=== PATIENT | male | born 1955 | race Caucasian/White ===

== ENCOUNTER 2021-01-04 06:27 | Day surgery (SDC) | payer BC ==
[~2021-01-04 06:27] MED LIST: BUPIVACAINE 0.5% VIAL IJ ONE; XYLOCAINE 1% HCL 20 ML MDV ONE
[2021-01-04] MEDS ORDERED: CEFAZOLIN 2 GM-D5W BAG** 2 GM/50 ML ML IV SCH (06:30)
[2021-01-04] MEDS ORDERED: Lactated Ringers 1,000 ML IV SCH (06:30)
[2021-01-04] MEDS ORDERED: CEFAZOLIN 2 GM-D5W BAG** 2 GM/50 ML ML IV ONE (07:04)
[2021-01-04] MEDS ORDERED: Lactated Ringers 1,000 ML IV ONE (07:04)
[2021-01-04] MEDS ORDERED: BUPIVACAINE 0.5% VIAL IJ ONE (07:32)
[2021-01-04] MEDS ORDERED: XYLOCAINE 1% HCL 20 ML MDV ONE (07:32)
[2021-01-04 09:02] VITALS: O2SAT 100
[2021-01-04 09:18] VITALS: BP 130/88; PULSE 62
--- NOTE | 2021-01-04 10:53 | OP ---
SURGERY DATE/TIME: 01/04/2021 0806 PREOPERATIVE DIAGNOSIS: Deep peroneal nerve entrapment and mononeuropathy. POSTOPERATIVE DIAGNOSIS: Deep peroneal nerve entrapment and mononeuropathy. PROCEDURE: Neurolysis of deep peroneal nerve left foot. SURGEON: Rigoberto Gonzalez DPM. HAND FILER BALANCE WHEEL: None. ANESTHESIA: Local consisting of 30 cc with 1:1 mixture of 1% lidocaine plain and 0.5% Marcaine plain injected in ankle block-type fashion. HEMOSTASIS: Ankle tourniquet set to 250 mm of Mercury for 20 minutes. ESTIMATED BLOOD LOSS: Less than 5 cc. MATERIALS: 4-0 Monocryl, 3-0 Nylon. INJECTABLES: 30 cc of 1:1 mixture of 1% lidocaine plain and 0.5% bupivacaine plain injected in ankle block-type fashion. INDICATION FOR SURGERY: Alexander Jean is a very pleasant 65 year-old male very well known to my service for idiopathic peripheral neuropathy both legs and bilateral Charcot deformity. Luckily in his case the forefoot Lisfranc Charcot is stable and does not require any surgical intervention. However, he has symptomatology consistent with deep peroneal nerve entrapment at the level of the mid-foot and the first web space. At this time the patient indicates that this pain is significant in comparison to any of the other pain that he has encountered in his life and he wishes to proceed with surgical intervention. The patient was notified of all risks, benefits and complications of surgical intervention and wished to proceed with surgical intervention consisting of a deep peroneal neurolysis. DESCRIPTION OF PROCEDURE AND FINDINGS: Following adequate assessment by the preoperative team, the patient was brought into the operating room and placed supine on the operating room table. At this time an ankle block was performed under aseptic technique utilizing 30 cc of 1:1 mixture of 1% lidocaine plain and 0.5% bupivacaine plain. The patient handled this without complication and the left foot was prepped and draped in the typical sterile fashion. At this time attention was directed to the first web space of the left foot where due to his Charcot deformity there is a significant amount of hallux abductovalgus. A skin marker was utilized to identify the appropriate incision site where the deep peroneal nerve perforates into the first web space. At this time a 15 blade was utilized to carry incision down to the subcutaneous layer. From this point on a combination of blunt and sharp dissection was utilized to carry the dissection through the web space. On encounter of the medial dorsal digital branch identification this was traced back to the bifurcation where the peroneal nerve separates between the web space. The medial branch of this was isolated and neurolysis was performed. Two hemostats were applied to the nerve and the nerve was resected. Bovie was set to 40 and was utilized to double crush the nerve which was then buried into the adductor hallucis muscle belly. At this time dissection was carried down to the plantar digital nerve and the same procedure was performed at this level. The patient was awake for the procedure. Identification of the nerves were made utilizing the Bovie and the patient's mobilization of a positive Tinel's when activated. At this time the incision site was burying of the nerve into the adductor hallucis muscle belly was performed utilizing 4-0 Monocryl. At this time the incision site was then washed with copious amounts of sterile saline. A single interrupted stitch was utilized to coapt the subcutaneous tissue and then a combination of simple interrupted and horizontal mattress-type sutures were utilized to coapt the skin edges. At this time a dressing consisting of Betadine, Adaptic, 4x4, Martha and Coban was applied to the left foot and a postoperative surgical shoe was applied to the left foot. The patient handled the procedure without complication. Tourniquet was let down at a total of 20 minutes. The patient was returned to the postoperative anesthesia care unit with vital signs stable and vascular status intact. Postoperative orders as indicated in the patient's chart.
== END 2021-01-04 09:20 | disposition home or self-care (01) ==
LOC: SDC 06:27
PROVIDERS: ATTEND Podiatrist Foot & Ankle Surgery
DX: G57.32 Lesion of lateral popliteal nerve, left lower limb (principal); G57.82 Other specified mononeuropathies of left lower limb; M79.672 Pain in left foot
CPT/HCPCS: 64708; J0690

== ENCOUNTER 2022-12-19 06:03 | Day surgery (SDC) | payer MEDICARE, BC ==
[2022-12-19] MEDS ORDERED: Marcaine Mpf 0.5% Vial 30 Ml ONE (06:17)
[2022-12-19] MEDS ORDERED: Xylocaine 1% Vial 30 ML PF IJ ONE (06:18)
[2022-12-19] MEDS ORDERED: Lactated Ringers 1,000 ML IV SCH (06:30)
[2022-12-19] MEDS ORDERED: CEFAZOLIN 2 GM-D5W BAG** 2 GM/50 ML ML IV SCH (06:30)
[2022-12-19 06:46] VITALS: O2SAT 98
[2022-12-19 06:58] LABS: BASOPHIL % 0.5 % (0.0-0.4); Basophil (Absolute #) 0.05 x10^3/uL (0-0.4); Eosinophil % 1.8 % (0.00-5.0); Eosinophil (Absolute #) 0.17 x10^3/uL (0-0.5); Hematocrit 50.9 % (42-50); IMMATURE GRAN # 0.02 x10^3u/L (0.00-0.03); IMMATURE GRAN % 0.2 % (0.00-0.4); Lymphocyte (Absolute #) 2.48 x10^3/uL (1.0-4.6); Lymphocytes % 26.6 % (24.0-44.0); Mean Cell Volume 84.1 fL (78-100); Mean Corpuscular Hemoglobin 28.1 pg (26-32); Mean Corpuscular Hgb Concent. 33.4 g/dL (32-36); Mean Platelet Volume 9.6 fL (7.5-11.0); Monocytes % 8.6 % (0.0-12.0); Neutrophil % 62.3 % (36.0-66.0); Platelet Count 239 x10^3/uL (150-450); Red Blood Count 6.05 x10^6/uL (4.1-5.6); Red Cell Distribution Width 12.5 % (11.5-14.0); White Blood Count 9.3 x10^3/uL (4.0-10.5)
[2022-12-19 08:19] VITALS: BP 113/89; PULSE 54
[2022-12-19 08:41] LABS: ALBUMIN 4.8 g/dL (3.5-5.0); ALKALINE PHOSPHATASE 93 U/L (38-126); ANION GAP 17.7 MEQ/L (5-15); BLOOD UREA NITROGEN 19 mg/dL (9-20); CHLORIDE 103 mmol/L (98-107); Calcium 9.3 mg/dL (8.4-10.2); Carbon Dioxide 23 mmol/L (22-30); Creatinine 1 0.95 mg/dL (0.66-1.25); EST GLOMERULAR FILTRATION RATE > 60.0 ML/MIN; Glucose 110 mg/dL (74-106); Potassium 4.6 mmol/L (3.5-5.1); SGOT/AST 32 U/L (17-59); SGPT/ALT 30 U/L (0-50); SODIUM 139 mmol/L (137-145); Total Protein 8.4 g/dL (6.3-8.2)
--- NOTE | 2022-12-19 08:47 | XRAY ---
Indication: Right 3rd metatarsal floating osteotomy. Intraoperative fluoroscopy provided for 48 seconds. 3 digital spot images submitted for interpretation demonstrates distal 3rd metatarsal shaft osteotomy. Correlate with intraoperative findings/report.
--- NOTE | 2022-12-22 11:13 | OP ---
SURGERY DATE/TIME: 12/19/2022 0712 PREOPERATIVE DIAGNOSES: 1) Idiopathic peripheral neuropathy right foot. 2) Charcot osteoarthropathy. 3) Pressure ulcer chronic right foot. POSTOPERATIVE DIAGNOSES: 1) Idiopathic peripheral neuropathy right foot. 2) Charcot osteoarthropathy. 3) Pressure ulcer chronic right foot. PROCEDURES: Floating metatarsal head osteotomy right foot. SURGEON: Rigoberto Gonzalez DPM. KENNEL STAFF MEMBER: None. ANESTHESIA: Local. ESTIMATED BLOOD LOSS: Less than 2 cc. MATERIALS: 3-0 Nylon. INJECTABLES: 20 cc of 1:1 mixture of 1% lidocaine plain and 0.5% bupivacaine plain injected in a metatarsal block-type fashion. HEMOSTASIS: Pressure dressing. INDICATION FOR SURGERY: Alexander is a very pleasant long-time patient of [facility] who is very well known to our service for having a very unique case of bilateral Charcot osteoarthropathy to his feet at the mid-foot however with no presence of diabetes mellitus. He does have some severe idiopathic peripheral neuropathy and developed Charcot over the years however has remained stable. In the last six weeks, the patient has developed an ulceration underneath the third metatarsal head of the right foot at this time this is secondary to plantar fat pad atrophy, biomechanics and metatarsal head overload secondary to Charcot deformity. Given the patient's stability, no recommendations were made for reconstruction. However, the recommendation was made for a floating metatarsal head osteotomy for several reasons. The patient has had multiple negative wound cultures at this time. The patient's metatarsal head was not exposed plantarly to the pressure ulceration and the patient does have Charcot osteoarthropathy with idiopathic peripheral neuropathy to make him an excellent candidate for his procedure in order to heal the wound at the plantar aspect of the right foot. The patient had failed conservative management of the wound care with some significant improvement however there is significant callousing and high probability of recurrence. All risks, complications and benefits of surgical intervention including but not limited to infection, hematoma, seroma, possibility of delayed wound healing, bone healing, possibility of nonhealing fracture, possibility of pain and possibility of bone infection were all discussed with the patient. He understands all of these risks and wishes to proceed with surgical intervention at this time. No guarantees were provided as to the outcome. Plenty of time was allowed for him and his to ask questions which were answered to their apparent satisfaction. It is with that we decided to proceed. DESCRIPTION OF PROCEDURE AND FINDINGS: Alexander is brought into the OR and placed on the OR table in the supine position. At this time aseptic block was performed blocking the metatarsal #3 to the right foot. Following this, the right foot was prepped and draped in the typical sterile fashion and lowered onto the surgical field. At this time attentions was directed under fluoroscopic guidance to the wound plantarly. A [place] was utilized to confirm that the metatarsal head #3 was pressure source. A stab incision was made dorsal medial to the third metatarsal head this was resected utilizing an 18 mm sagittal saw. Once free under fluoroscopic guidance, the metatarsal head was freely movable and this off-loaded the pressure. Following this, simple 3-0 Nylon in a horizontal mattress-type fashion was utilized to coapt the skin. The wound at the plantar aspect of the right foot was debrided utilizing a curette. Following this a dressing consisting of Betadine, Adaptic, 4x4, Kerlix and Coban was utilized to secure the foot. The patient was then returned to the preoperative with vital signs stable and vascular status intact. The patient handled the anesthesia as well as the procedure without significant complication. Postoperative orders as indicated in the patient's discharge chart.
== END 2022-12-19 08:25 | disposition home or self-care (01) ==
LOC: SDC 06:03
PROVIDERS: ATTEND Podiatrist Foot & Ankle Surgery
DX: G60.9 Hereditary and idiopathic neuropathy, unspecified (principal); M14.671 Charcot's joint, right ankle and foot; L89.610 Pressure ulcer of right heel, unstageable
CPT/HCPCS: 11042; 28308; 36415; 73630; 76000; 80053; 85025; J0690; J2001

== ENCOUNTER 2023-09-08 08:27 | Day surgery (SDC) | payer BC, MEDICARE ==
[2023-09-08] MEDS ORDERED: CEFAZOLIN 2 GM-D5W BAG** 2 GM/50 ML ML IV ONE (08:38)
[2023-09-08] MEDS ORDERED: Lactated Ringers 1,000 ML IV ONE (08:39)
[2023-09-08] MEDS: CEFAZOLIN 2 GM-D5W BAG** 2 GM/50 ML ML IV SCH (08:42)
[2023-09-08] MEDS: Lactated Ringers 1,000 ML IV SCH (08:42)
[2023-09-08 08:59] VITALS: RESP 18; O2SAT 98
[2023-09-08 09:07] LABS: Hematocrit 49.1 % (42-50); Hemoglobin 16.2 g/dL (12.5-18.0); Mean Corpuscular Hemoglobin 28.4 pg (26-32); Mean Platelet Volume 10.1 fL (7.5-11.0); Platelet Count 200 x10^3/uL (150-450); Red Blood Count 5.71 x10^6/uL (4.1-5.6); Red Cell Distribution Width 12.5 % (11.5-14.0); White Blood Count 5.9 x10^3/uL (4.0-10.5)
[2023-09-08 09:22] LABS: ALBUMIN 4.5 g/dL (3.5-5.0); ANION GAP 12.1 MEQ/L (5-15); BILIRUBIN,TOTAL 0.7 mg/dL (0.2-1.3); Calcium 9.3 mg/dL (8.4-10.2); Creatinine 1 0.98 mg/dL (0.66-1.25); EST GLOMERULAR FILTRATION RATE 85.6 ML/MIN; Potassium 4.3 mmol/L (3.5-5.1); Total Protein 7.2 g/dL (6.3-8.2)
[2023-09-08] MEDS ORDERED: Marcaine Mpf 0.5% Vial 30 Ml ONE (10:29)
[2023-09-08] MEDS ORDERED: XYLOCAINE 1% HCL 20 ML MDV ONE (10:29)
[2023-09-08] MEDS ORDERED: VANCOCIN INJECTION IV ONE (11:48)
--- NOTE | 2023-09-08 12:06 | XRAY ---
Indication: Right 1st metatarsal bone debridement. Intraoperative fluoroscopy provided to 34 seconds. 4 digital spot images submitted for interpretation demonstrates metallic localizer tip projecting over 1st metatarsal head. Correlate with intraoperative findings/report.
[2023-09-08 12:22] VITALS: BP 135/76; PULSE 51; TEMP 97.3
--- NOTE | 2023-09-08 15:21 | XRAY ---
34 seconds of fluoroscopy was used in surgery for a right 1st metatarsal bone debridement.
--- NOTE | 2023-09-09 11:46 | OP ---
SURGERY DATE/TIME: 09/08/2023 1101 PREOPERATIVE DIAGNOSES: 1) Peroneal overdrive right foot. 2) Osteomyelitis tibial sesamoid right foot. 3) Pressure ulcer right foot. 4) Idiopathic peripheral neuropathy. 5) Charcot osteoarthropathy right foot. POSTOPERATIVE DIAGNOSES: 1) Peroneal overdrive right foot. 2) Osteomyelitis tibial sesamoid right foot. 3) Pressure ulcer right foot. 4) Idiopathic peripheral neuropathy. 5) Charcot osteoarthropathy right foot. PROCEDURES: 1) Resection of peroneus longus tendon. 2) Resection of tibial sesamoid. 3) Wound debridement right foot. SURGEON: Rigoberto Gonzalez DPM. CIVIL ENGINEERING DESIGNER: None. ANESTHESIA: Local consisting of 30 cc of 1:1 mixture of 1% lidocaine plain and 0.5% bupivacaine plain injected in ankle block laterally to the right lower extremity. HEMOSTASIS: Pressure dressing. ESTIMATED BLOOD LOSS: Approximately 10 cc. MATERIALS: 4-0 Monocryl, 3-0 Nylon. INDICATION FOR SURGERY: Alexander is a very pleasant 67-year-old male very well known to my service for idiopathic peripheral neuropathy. However, uncharacteristically he has Charcot osteoarthropathy to the bilateral lower extremities with almost complete fragmentation and coalescence of his bilateral feet at the level of the metatarsal joint this has resulted in significantly deformed feet and this has resulted in significant pressure in conjunction with his peripheral neuropathy this has resulted in multiple pressure wounds in the past. Today, we are dealing with a newer wound underneath the right first metatarsophalangeal joint. He has had this wound for approximately three weeks per patient's recollection. The wound was debrided in clinic effectively and the infection seemingly gone clinically. However, MRI was obtained on of last week demonstrating some early indications of osteomyelitis on the tibial sesamoid of the right foot. As a result the decision was made to proceed with offloading procedures to the first metaphalangeal joint with accessing the sesamoid and removing that from the equation. Debridement of the wound as well as resection of the peroneus longus which is causing peroneal overdrive as a result of significant deformity to the foot and significant muscle contracture. From that standpoint, the patient is significantly neuropathic and wishes to stay awake for the procedure. He understands all risks, complications and benefits of surgical intervention at this time including but not limited to infection, hematoma, seroma, possibility of delayed wound healing, nonwound healing, possible failure of surgical intervention and possible need for further surgical intervention at a later date. No guarantees were provided as to the outcome of surgical intervention. At this time, we decided to proceed. DESCRIPTION OF PROCEDURE AND FINDINGS: The patient is brought into the OR and placed on the OR table in the supine position. At this time the right lower extremity was prepped and draped in the typical sterile fashion. Ankle block was performed utilizing 30 cc of a 1:1 mixture of 1% lidocaine plain and 0.5% bupivacaine plain for the peroneus longus tendon resection. At this time, attention was directed to the right ankle where the fibula was identified just posterior to the posterior border of the fibula. A linear incision was made approximately 3 cm in length this was carried down into the peroneus longus and peroneus brevis tendon were identified retracting these tendons and utilizing a [place] to identify which tendon was which. Once the peroneus longus was identified it was resected and a 1 cm wedge was taken out of it to prevent it from scarring back down. From that standpoint, attention was then directed to the medial aspect of the first metaphalangeal joint where at the moccasin line of the first metatarsophalangeal joint linear incision was made and carried down to the level of the plantar aspect of the first metaphalangeal joint. The tibial sesamoid was identified. The flexor hallucis brevis was resected from distal and proximal and with a rongeur this was removed from the surgical site this was handed off the field for pathologic assessment. At this time copious amounts of Bactisure 1 liter was utilized to flush the surgical site and 3 liters of sterile saline were then utilized to flush the surgical site. The medial foot wound and lateral ankle wound were then coapted utilizing 4-0 Monocryl, 3-0 Nylon in a simple interrupted buried-type fashion to the subcu and a horizontal mattress-type fashion to the skin. The wound was then debrided with a postoperative debridement. Size of the wound being 1.7 x 2.9. The patient then had a dressing consisting of Betadine, Adaptic, 4x4, Kerlix and MIKHAIL applied to the patient's right foot. The patient was then returned to the postoperative anesthesia care unit with vital signs stable and vascular status intact. The patient handled the anesthesia as well as the procedure without significant complication. Postoperative orders as indicated in the patient's discharge chart.
== END 2023-09-08 12:40 | disposition home or self-care (01) ==
LOC: SDC 08:27
PROVIDERS: ATTEND Podiatrist Foot & Ankle Surgery
DX: M86.9 Osteomyelitis, unspecified (principal); M67.873 Other specified disorders of tendon, right ankle and foot; L89.619 Pressure ulcer of right heel, unspecified stage; G60.9 Hereditary and idiopathic neuropathy, unspecified; M14.671 Charcot's joint, right ankle and foot
CPT/HCPCS: 11042; 28200; 28315; 36415; 73630; 76000; 80053; 85027; J0690; J3370

== ENCOUNTER 2023-11-19 12:03 | Day surgery (SDC) | payer BC, MEDICARE ==
[2023-11-19] MEDS ORDERED: CEFAZOLIN 2 GM-D5W BAG** 2 GM/50 ML ML IV ONE (12:21)
[2023-11-19] MEDS ORDERED: Lactated Ringers 1,000 ML IV ONE ×2 (12:21→12:26)
[2023-11-19] MEDS: Lactated Ringers 1,000 ML IV SCH (12:29)
[2023-11-19] MEDS: CEFAZOLIN 2 GM-D5W BAG** 2 GM/50 ML ML IV SCH (12:29)
[2023-11-19 12:52] LABS: Hematocrit 47.8 % (42-50); Hemoglobin 16.1 g/dL (12.5-18.0); Mean Cell Volume 83.3 fL (78-100); Mean Corpuscular Hgb Concent. 33.7 g/dL (32-36); Mean Platelet Volume 9.8 fL (7.5-11.0); Platelet Count 212 x10^3/uL (150-450); Red Blood Count 5.74 x10^6/uL (4.1-5.6); Red Cell Distribution Width 12.7 % (11.5-14.0); White Blood Count 6.6 x10^3/uL (4.0-10.5)
[2023-11-19 13:06] LABS: ALBUMIN 4.4 g/dL (3.5-5.0); ANION GAP 14.6 MEQ/L (5-15); BILIRUBIN,TOTAL 0.9 mg/dL (0.2-1.3); Calcium 9.4 mg/dL (8.4-10.2); Creatinine 1 0.94 mg/dL (0.66-1.25); EST GLOMERULAR FILTRATION RATE 89.4 ML/MIN; Total Protein 7.5 g/dL (6.3-8.2)
[2023-11-19] MEDS ORDERED: Xylocaine 1% Vial 30 ML PF IJ ONE (13:44)
[2023-11-19] MEDS ORDERED: Marcaine Mpf 0.5% Vial 30 Ml ONE (13:44)
--- NOTE | 2023-11-19 15:23 | XRAY ---
Indication: Right 1st MTP arthrodesis. Intraoperative fluoroscopy provided for 46 seconds. 17 digital spot images submitted for interpretation demonstrates instrumentation 1st MTP joint. Correlate with intraoperative findings/report.
[2023-11-19 15:29] VITALS: O2SAT 99
[2023-11-19 15:52] VITALS: BP 132/78; PULSE 58; RESP 18; TEMP 97.8
--- NOTE | 2023-11-19 16:49 | XRAY ---
46 seconds of fluoroscopy was used in surgery for a right 1st MTP arthrodesis.
--- NOTE | 2023-11-20 12:14 | OP ---
SURGERY DATE/TIME: 11/19/2023 7314 PREOPERATIVE DIAGNOSES: 1) Medial collateral ligament tear. 2) Dehiscence of surgical wound/pressure wound secondary to peripheral neuropathy idiopathic. 3) Charcot osteoarthropathy. 4) Difficulty with ambulation. POSTOPERATIVE DIAGNOSES: 1) Medial collateral ligament tear. 2) Dehiscence of surgical wound/pressure wound secondary to peripheral neuropathy idiopathic. 3) Charcot osteoarthropathy. 4) Difficulty with ambulation. PROCEDURES: 1) Repair of medial collateral ligament. 2) Reconstruction with 1.45 JuggerKnot medial collateral ligament with lateral capsular release. 3) Complex closure of right foot wound. SURGEON: Rigoberto Gonzalez DPM. SHEET CUTTER: None. ANESTHESIA: Local. HEMOSTASIS: [place] for 25 total tourniquet minutes. QUANTITATIVE BLOOD LOSS: Approximately 15 cc. MATERIALS: 4-0 Monocryl, 3-0 Nylon, 1.45 JuggerKnot, 60 mm PEEK anchor. INJECTABLES: 20 cc of a 1:1 mixture of 1% lidocaine plain and 0.5% bupivacaine plain injected in a Rodriguez block-type fashion. INDICATION FOR SURGERY: Alexander is a very pleasant 68-year-old male very well-known to my service for a very perplexing case of nondiabetic Charcot osteoarthropathy to the bilateral lower extremity. We have made multiple attempts at limb salvage and have been successful in regards to this. The patient recently had intervention for osteomyelitis of the fibular sesamoid which was removed and bone was debrided and this was successful for closing the wound on the plantar aspect of his foot. Surgical wound dehiscence occurred secondary to contracture of the hallux into a significantly valgus position and the fact that the patient was weight bearing immediately after and removed the stitches after one week from surgical intervention. Following this, the patient did have a surgical wound dehiscence with communication to the joint. From that standpoint the decision was made with some level of urgency to proceed with a wash out of the joint, repair of the medial collateral ligament, release of the lateral collateral ligaments and then closure of the wound. The patient is amenable to this plan. At this time, the patient understands all risks, complications and benefits of surgical intervention at this time including but not limited to infection, hematoma, seroma, possibility of delayed wound healing, nonwound healing and possible need for further surgical intervention at a later date. No guarantees were provided as to the outcome of surgical intervention. Plenty of time was allowed for the patient to ask questions which were answered to his apparent satisfaction. It is at this time we decided to proceed. DESCRIPTION OF PROCEDURE AND FINDINGS: At this time, the patient was brought into the OR and placed on the OR table in the supine position. At this time, the right lower extremity was prepped and draped in the typical sterile fashion and lowered onto the surgical field. Following this, a 20 cc block of 1:1 mixture of 1% lidocaine plain and 0.5% bupivacaine plain was injected in a Rodriguez block-type fashion. After an adequate amount of time, we proceeded with excision of the wound dehiscence at the medial aspect of the joint. Beneath this noted was a significant amount of capsular disruption as well as gout crystals within the inner aspect of the capsule. From that standpoint, the decision was made to proceed with copious amounts of sterile saline flush of the joint after dissecting and cleaning out the infected capsule. Lateral release was then performed percutaneously under fluoroscopic guidance. The capsule then was repaired utilizing 2-0 Vicryl in a simple interrupted buried type fashion. Following this, a 1.45 JuggerKnot was then introduced at the mid shaft of the proximal phalanx gaining adequate tension pulling the toe into a distracted position getting the pressure off of the medial collateral ligament and then this was anchored into the first metatarsal well away from our area of concern and anchored utilizing a 16 mm suture anchor. Following this, copious amounts of sterile saline were once again utilized to flush the surgical site. On initial debridement of the capsule, a 1,000 ml bag of BactiSure was used to flush the joint. Following this, a layered closure of the wound took place utilizing 4-0 Monocryl, 3-0 Nylon and 2-0 Nylon. At this point a dressing consisting of Betadine, Adaptic, 4x4, Kerlix, ABD and MIKHAIL was applied to the patient's right lower extremity. The patient was then returned to the postoperative anesthesia care unit with vital signs stable and vascular status intact. The patient handled the anesthesia as well as the procedure without significant complication. Postoperative orders as indicated in the patient's discharge chart.
== END 2023-11-19 15:45 | disposition home or self-care (01) ==
LOC: SDC 12:03
PROVIDERS: ATTEND Podiatrist Foot & Ankle Surgery
DX: M14.671 Charcot's joint, right ankle and foot (principal); T81.30XA Disruption of wound, unspecified, initial encounter; R26.2 Difficulty in walking, not elsewhere classified; S93.691A Other sprain of right foot, initial encounter
CPT/HCPCS: 13160; 26530; 26540; 36415; 73630; 76000; 80053; 85027; A6260; C1713; J0690; J2001

== ENCOUNTER 2023-12-22 07:02 | Day surgery (SDC) | payer BC, MEDICARE ==
[2023-12-22] MEDS: Lactated Ringers 1,000 ML IV SCH (07:18)
[2023-12-22] MEDS: CEFAZOLIN 2 GM-D5W BAG** 2 GM/50 ML ML IV SCH (07:18)
[2023-12-22 07:37] LABS: Hematocrit 47.5 % (42-50); Hemoglobin 16.2 g/dL (12.5-18.0); Mean Cell Volume 83.2 fL (78-100); Mean Corpuscular Hemoglobin 28.4 pg (26-32); Mean Corpuscular Hgb Concent. 34.1 g/dL (32-36); Mean Platelet Volume 9.8 fL (7.5-11.0); Platelet Count 185 x10^3/uL (150-450); Red Blood Count 5.71 x10^6/uL (4.1-5.6); Red Cell Distribution Width 12.9 % (11.5-14.0); White Blood Count 6.3 x10^3/uL (4.0-10.5)
[2023-12-22 07:50] LABS: ALBUMIN 4.5 g/dL (3.5-5.0); ANION GAP 14.2 MEQ/L (5-15); BILIRUBIN,TOTAL 0.7 mg/dL (0.2-1.3); Calcium 9.3 mg/dL (8.4-10.2); Creatinine 1 1.01 mg/dL (0.66-1.25); Potassium 4.2 mmol/L (3.5-5.1); Total Protein 7.3 g/dL (6.3-8.2)
[2023-12-22] MEDS ORDERED: Marcaine Mpf 0.5% Vial 30 Ml ONE (11:04)
[2023-12-22] MEDS ORDERED: Xylocaine 1% Vial 30 ML PF IJ ONE (11:04)
[2023-12-22] MEDS ORDERED: Versed 2 MG/2 ML Injection ONE (11:15)
[2023-12-22] MEDS ORDERED: SUBLIMAZE 100 MCG/2 ML ONE ×2 (11:15→13:36)
[2023-12-22] MEDS ORDERED: DIPRIVAN 200 MG/20 ML IV ONE ×3 (11:15→12:32)
[2023-12-22] MEDS ORDERED: Lactated Ringers 1,000 ML IV ONE ×2 (11:46→12:59)
--- NOTE | 2023-12-22 13:06 | XRAY ---
Indication: Right 1st MTP arthrodesis. Intraoperative fluoroscopy provided for 1 minute 22 seconds. 11 digital spot images submitted for interpretation demonstrates fusion 1st MTP with intact fixation plate/screws. Correlate with intraoperative findings/report.
[2023-12-22 14:04] VITALS: RESP 16
[2023-12-22 14:29] VITALS: BP 147/80; PULSE 53; TEMP 97; O2SAT 97
--- NOTE | 2023-12-22 15:19 | XRAY ---
One minute and 22 seconds of fluoroscopy was used in surgery for a right 1st MTP arthrodesis.
--- NOTE | 2023-12-23 11:27 | OP ---
SURGERY DATE/TIME: 12/22/2023 1130 PREOPERATIVE DIAGNOSES: 1) Peripheral neuropathy. 2) Osteoarthritis first metatarsophalangeal joint. 3) Hallux valgus. 4) Charcot osteoarthropathy. 5) Tophaceous gout. 6) Gout with draining sinus. POSTOPERATIVE DIAGNOSES: 1) Peripheral neuropathy. 2) Osteoarthritis first metatarsophalangeal joint. 3) Hallux valgus. 4) Charcot osteoarthropathy. 5) Tophaceous gout. 6) Gout with draining sinus. PROCEDURES: 1) Arthrodesis first metatarsophalangeal joint right foot. 2) Delayed primary closure of wound dehiscence secondary to draining cyst from gout. SURGEON: Rigoberto Gonzalez DPM. CIGARETTE PACKAGE EXAMINER: None. ANESTHESIA: Monitored anesthesia care. HEMOSTASIS: Ankle tourniquet set to 250 mm of Mercury for approximately 89 total tourniquet minutes. QUANTITATIVE BLOOD LOSS: Approximately 5 cc. MATERIALS: [facility] first metaphalangeal joint 0-degree plate with a 4.0 x 32 MAX VPC screw with a combination of locking and nonlocking screws, 2-0 Vicryl, 3-0 Nylon. INJECTABLES: See anesthesia report for details. INDICATION FOR SURGERY: Alexander is a very well-known patient of mine who has had multiple encounters secondary to his Charcot osteoarthropathy and peripheral neuropathy with wound that had been developing on the plantar aspect of his foot. At this time, the patient has subsequently healed at the plantar aspect of the first metatarsophalangeal joint from a wound secondary to his Charcot and a prominent sesamoid at the plantar aspect of the first metatarsophalangeal joint. From that standpoint, the patient has had a hard time healing a wound at the medial aspect of the joint. We recently discovered that the patient does have a long-standing history of tophaceous gout which resulted in a draining sinus in initial attempts to close the wound however, there was some infection present. The decision was made to take the tension off of the joint utilizing a mediocollateral ligament reconstruction and this once again has failed. However at this point, the patient was free of any soft tissue infection and the decision was made to be aggressive in order to proceed with definitive wound healing. As a result, we have decided to proceed secondary to his gout and the fact that the wound is dehiscing secondary to a draining sinus to get rid of the synovial fluid all together by fusing the joint. This is not a cosmetic surgery or as a result of the gout as he is largely asymptomatic from a pain standpoint. However, this will stop the draining sinus. The patient understands all risks, complications and benefits of surgical intervention at this time including but not limited to infection, hematoma, seroma, possibility of delayed wound healing, nonwound healing and possible need for further surgical intervention at a later date. No guarantees were provided as to the outcome. Plenty of time was allowed for the patient to ask questions which were answered to his apparent satisfaction. It is at this time we decided to proceed. DESCRIPTION OF PROCEDURE AND FINDINGS: The patient was brought into the OR and placed on the OR table in the supine position. At this time, monitored anesthesia care was administered until the patient was adequately sedated. A well-padded ankle tourniquet was applied to the patient's right ankle and the right foot was prepped in the typical sterile fashion. At this time, attention was directed over the first metatarsophalangeal joint. Under fluoroscopic guidance, incision was made down to the level of bone being careful not to damage any neurovascular structures. It is at this point inspecting the capsule, which looked largely distended with a significant amount of tophaceous gout within the first metatarsophalangeal joint. After cleaning this out, McGlamry was utilized to elevate the sesamoid off the plantar aspect of the first metatarsal. Inspection of the joint was fairly arthritic secondary to the tophaceous gout. A cup and conical reamer was utilized to resect the joint surface on both sides, this lined up fairly nicely with respects to his Charcot deformity. As a result, copious amounts of sterile saline were utilized to flush the site. Fenestration took place utilizing a 2-0 mm drill breaking through the subchondral plate on the proximal phalangeal side. Once lined up in an adequate position, a 0.065 mm K-wire was introduced from a medial-distal to proximal lateral orientation this held the position fairly adequately. A 0-degree ALPS first metatarsophalangeal joint arthrodesis plate was fixated and under fluoroscopic guidance a combination of locking and nonlocking screws were introduced fixing the plate getting adequate compression of the first metatarsophalangeal joint arthrodesis site. Interfragmentary compression was held utilizing a 4.0 x 32 MAX VPC this was stressed and deemed to be in an adequate position. Following this, attention was directed to the medial aspect where the wound dehiscence was, this was excised in totality and down to the level of the draining capsule which was no longer present secondary to the fusion of the metatarsophalangeal joint. This was cleaned out with copious amounts of sterile saline. 2-0 Vicryl was then utilized to coapt the subcutaneous skin edges and 3-0 Nylon was utilized in a horizontal mattress and simple interrupted alternating pattern to coapt the skin edges. Following this, dressing consisting of Betadine, Adaptic, 4x4, Kerlix, ABD and MIKHAIL was applied to the patient's right lower extremity with the foot orthogonal relative to longitudinal axis of the leg. The patient was then reversed from anesthesia and returned to the postoperative anesthesia care unit with vital signs stable and vascular status intact. The patient handled the anesthesia as well as the procedure without significant complication. Postoperative orders as indicated in the patient's discharge chart.
== END 2023-12-22 14:55 | disposition home or self-care (01) ==
LOC: SDC 07:02
PROVIDERS: ATTEND Podiatrist Foot & Ankle Surgery
DX: G62.9 Polyneuropathy, unspecified (principal); M19.071 Primary osteoarthritis, right ankle and foot; M21.071 Valgus deformity, not elsewhere classified, right ankle; M14.671 Charcot's joint, right ankle and foot; M1A.9XX1 Chronic gout, unspecified, with tophus (tophi)
CPT/HCPCS: 13160; 28750; 36415; 73630; 76000; 80053; 85027; C1713; C1769; J0690; J2250; J2704; J3010

== ENCOUNTER 2024-08-02 06:03 | Day surgery (SDC) | payer BC, MEDICARE ==
[2024-08-02 06:31] VITALS: RESP 18
[2024-08-02] MEDS: CEFAZOLIN 2 GM/100 ML NaCl 2 GM/100 ML IVPB IV SCH (06:31)
[2024-08-02] MEDS: Lactated Ringers 1,000 ML IV SCH (06:31)
[2024-08-02 06:49] LABS: Absolute Neutrophil Ct (ANC) 4.66 x10^3/uL (1.78-5.38); BASOPHIL % 0.9 % (0.2-1.2); Basophil (Absolute #) 0.07 x10^3/uL (0.01-0.08); Eosinophil % 1.5 % (0.8-7.0); Eosinophil (Absolute #) 0.12 x10^3/uL (0.04-0.54); Hemoglobin 16.6 g/dL (13.7-17.5); IMMATURE GRAN # 0.04 x10^3u/L (0.001-0.031); IMMATURE GRAN % 0.5 % (0.001-0.429); Lymphocyte (Absolute #) 2.31 x10^3/uL (1.32-3.57); Lymphocytes % 29.5 % (21.8-53.1); Mean Cell Volume 82.8 fL (79.0-92.2); Mean Corpuscular Hemoglobin 28.6 pg (25.7-32.2); Mean Corpuscular Hgb Concent. 34.6 g/dL (32.3-36.5); Mean Platelet Volume 9.7 fL (9.4-12.4); Monocyte (Absolute #) 0.63 x10^3/uL (0.30-0.82); Neutrophil % 59.6 % (34.0-67.9); Platelet Count 235 x10^3/uL (163-337); White Blood Count 7.8 x10^3/uL (4.23-9.07)
[2024-08-02 06:55] LABS: ALBUMIN 4.8 g/dL (3.5-5.0); ANION GAP 16.5 MEQ/L (5-15); BILIRUBIN,TOTAL 0.6 mg/dL (0.2-1.3); Calcium 9.5 mg/dL (8.4-10.2); Creatinine 1 0.93 mg/dL (0.66-1.25); EST GLOMERULAR FILTRATION RATE 90.6 ML/MIN; Potassium 4.3 mmol/L (3.5-5.1); Total Protein 7.5 g/dL (6.3-8.2)
[2024-08-02] MEDS ORDERED: Marcaine Mpf 0.5% Vial 30 Ml ONE (07:42)
[2024-08-02] MEDS ORDERED: XYLOCAINE 1% HCL 20 ML MDV ONE (07:42)
[2024-08-02] MEDS ORDERED: propofoL IV ONE ×4 (07:56→09:23)
--- NOTE | 2024-08-02 09:43 | XRAY ---
Indication: Left 1st MTP arthrodesis. Intraoperative fluoroscopy provided for 1 minute 3 seconds. 10 digital spot images submitted for interpretation demonstrates 1st MTP arthrodesis with intact fixation plate/screws. Correlate with intraoperative findings/report.
[2024-08-02 10:02] VITALS: TEMP 96.5
--- NOTE | 2024-08-02 10:05 | XRAY ---
1 minute and 3 seconds of fluoroscopy was used in surgery for a left 1st MTP arthrodesis.
[2024-08-02 10:11] VITALS: BP 112/75; PULSE 56; O2SAT 97
--- NOTE | 2024-08-03 19:20 | OP ---
SURGERY DATE/TIME: 08/02/2024 8925-4943 PREOPERATIVE DIAGNOSES: 1) Osteoarthritis, first metatarsophalangeal joint, left foot. 2) Gout, tophaceous, first metatarsophalangeal joint. 3) Pain, left foot. 4) Charcot osteoarthropathy. 5) Peripheral neuropathy, idiopathic in nature. POSTOPERATIVE DIAGNOSES: 1) Osteoarthritis, first metatarsophalangeal joint, left foot. 2) Gout, tophaceous, first metatarsophalangeal joint. 3) Pain, left foot. 4) Charcot osteoarthropathy. 5) Peripheral neuropathy, idiopathic in nature. PROCEDURE: First metatarsophalangeal joint arthrodesis of first metatarsophalangeal joint, left foot. SURGEON: Rigoberto Gonzalez DPM. CISTERN ROOM OPERATOR: None. ANESTHESIA: Monitored anesthesia care. HEMOSTASIS: Ankle tourniquet set to 250 mmHg for a total of 47 total tourniquet minutes. ESTIMATED BLOOD LOSS: Approximately 5 mL. MATERIALS: ALPS first MPJ 5-degree left and a 4.0 x 34 Max VPC screw for the interfrag screw, 3-0 Monocryl and 3-0 nylon. INDICATIONS FOR PROCEDURE: The patient is a very well-known patient to my service, a 68-year-old male with bilateral idiopathic neuropathy as well as Charcot osteoarthropathy with significant deformities to the bilateral lower extremities. In regard to his left foot, he has been having consistent pain as a result of what is suspected to be neuropathy and potentially gout given his history. At this time, patient has decided to proceed with surgical intervention in order to alleviate the pain that is associated with his left foot. From that standpoint, patient has failed a decompression of the deep peroneal nerve in the past and at this time would like to proceed with a fusion to address the osteoarthropathy as well as the gout. From that standpoint, patient has been made aware of all risks, complications, and benefits of surgical intervention at this time including, but not limited to, infection, hematoma, seroma, possibility of delayed wound healing, non-wound healing, possibility of failure of surgical intervention, possibility of hardware failure, and possible need for revision. Patient understands all this and wishes to proceed. Plenty of time was allowed for the patient to ask questions, which were answered to his apparent satisfaction. It is at this time we decided to proceed. DESCRIPTION OF PROCEDURE AND FINDINGS: Patient was brought into the operating room and placed on the operating room table in the supine position. At this time, monitored anesthesia care was administered until the patient was adequately sedated. To the left ankle, a well-padded ankle tourniquet was applied, and the tourniquet was set to 250 mmHg. The left lower extremity was prepped and draped in the typical sterile fashion and lowered onto the surgical field. At this time under fluoroscopic guidance, the joint access was identified. A linear incision was made utilizing a 10 blade. Careful dissection was carried down to the joint line identifying any neurovascular structures. Any bleeders that were encountered along the way were either cauterized or hand-tied. From that standpoint, the extensor hallucis longus tendon was retracted laterally out of the visualization of the field. At this time, the dorsal aspect of the joint was encountered, and a significant amount of tophaceous gout was identified. From that standpoint, the tophaceous gout was removed and sent off for pathological assessment. After that, arthrotomy took place revealing a very arthritic and severely deformed first metatarsophalangeal joint. McGlamry was utilized to loosen the sesamoids plantarly. From then, the joint surfaces were cut, reapproximating the joint surfaces with [id number] contact. Once this was achieved, copious amounts of sterile saline were utilized to flush out any remaining cartilage or devitalized tissue. Once this was achieved, a 2.0 mm drill was then utilized to fenestrate the ends of the subchondral plate until healthy bleeding was achieved. From that standpoint, a position was assessed under fluoroscopic guidance in the AP, mortise, and lateral positions. Once this was achieved, an interfragmentary K-wire was then introduced from a distal lateral to a proximal medial orientation. A 4.0 x 34 Max VPC screw was introduced, and then an ALPS first MPJ left with a 5-degree bend was introduced. Alternating distal aspect of the plate was first fixated, and then the proximal aspect of the plate was then fixated utilizing an eccentric screw. Once this was achieved, the remainder of the locking and nonlocking holes were filled. This position was assessed and deemed to be excellent, having great [id number] contact for said fusion. From that standpoint, copious amounts of sterile saline were utilized to flush the surgical site. A 3-0 Monocryl was utilized to coapt the capsular layer with the extensor hallucis longus. Subcutaneous was closed with simple interrupted Monocryl, and then 3-0 nylon was utilized in a horizontal mattress-type fashion, coapting the skin edges in a horizontal mattress-type fashion. Dressing consisting of Betadine, Adaptic, 4 x 4, Kerlix, and Jamari was applied to the patient's left lower extremity. The patient was then reversed from anesthesia and returned to the postoperative anesthesia care unit with vital signs stable and vacular status intact. Patient handled the anesthesia as well as the procedure without significant complication. Postoperative orders as indicated in the patient's discharge chart.
== END 2024-08-02 10:32 | disposition home or self-care (01) ==
LOC: SDC 06:03
PROVIDERS: ATTEND Podiatrist Foot & Ankle Surgery
DX: M19.072 Primary osteoarthritis, left ankle and foot (principal); M10.9 Gout, unspecified; M79.672 Pain in left foot; M14.672 Charcot's joint, left ankle and foot; G62.9 Polyneuropathy, unspecified
CPT/HCPCS: 28750; 36415; 73630; 76000; 80053; 85025; C1713; C1776; J0690; J2704